=== PATIENT | female | born 1970 | race Caucasian/White ===

== ENCOUNTER → 2020-08-07 15:41 | Outpatient (CLI) | payer BC, SELFPAY ==
--- NOTE | ~2020-08-07 | MM_ITS ---
EXAMINATION: MM screening ritchie BI w vanessa HISTORY: Screening mammogram TECHNIQUE: Craniocaudal and mediolateral oblique 3-D tomosynthesis images were obtained and synthetic 2-D images were generated. CAD analysis was submitted and interpreted. COMPARISON: No prior mammogram is available for comparison at this institution. BREAST PARENCHYMAL COMPOSITION: There are scattered areas of fibroglandular density. FINDINGS: There is no evidence of suspicious mass, calcification, or architectural distortion to sugg est malignancy in either breast. There has been no suspicious interval change. IMPRESSION: 1. No mammographic evidence of malignancy. 2. Recommend routine screening mammography in one year. BI-RADS Category 1: Negative Reviewed, dictated and finalized at location A.
== END ==
PROVIDERS: Visit Provider Nurse Practitioner
DX: Z12.31 Encounter for screening mammogram for malignant neoplasm of breast (principal)
CPT/HCPCS: 77063; 77067

== ENCOUNTER → 2022-07-29 15:38 | Outpatient (CLI) | payer BC, SELFPAY ==
--- NOTE | ~2022-07-29 | MR_ITS ---
EXAMINATION: MR cervical spine wo con DATE: 07/29/2022 16:19 INDICATION: Neck pain. TECHNIQUE: Magnetic resonance imaging (MRI) of the cervical spine was performed without intravenous c ontrast. COMPARISON: None FINDINGS: There is hypolordosis of cervical spine. Vertebral body heights are normal. There is mildly decreased disc height at C4-C5, C5-C6, and C6-C7. The spinal cord signal intensity is normal. The fo llowing disc levels are specifically discussed: C2-C3: The disc does not extend beyond the endplate margin. There is no uncovertebral joint osteoarth ritis. There is mild bilateral facet joint osteoarthritis. There is no neural foraminal stenosis. The re is no central canal stenosis. C3-C4: The disc does not extend beyond the endplate margin. There is mild right uncovertebral joint o steoarthritis. There is no facet joint osteoarthritis. There is no neural foraminal stenosis. There i s no central canal stenosis. C4-C5: The disc does not extend beyond the endplate margin. There is moderate bilateral uncovertebral joint osteoarthritis. There is mild bilateral facet joint osteoarthritis. There is mild bilateral ne ural foraminal stenosis. There is no central canal stenosis. C5-C6: The disc does not extend beyond the endplate margin. There is mild right and moderate left unc overtebral joint osteoarthritis. There is no facet joint osteoarthritis. There is mild left neural fo raminal stenosis. There is no central canal stenosis. C6-C7: There is a central extrusion. There is no uncovertebral joint osteoarthritis. There is no face t joint osteoarthritis. There is no neural foraminal stenosis. There is mild central canal stenosis. C7-T1: The disc does not extend beyond the endplate margin. There is no uncovertebral joint osteoarth ritis. There is mild right and severe left facet joint osteoarthritis. There is mild left neural fora michael stenosis. There is no central canal stenosis. IMPRESSION: 1. Mild cervical spondylosis. Reviewed, dictated and finalized at location A.
== END ==
PROVIDERS: PCP Physical Medicine & Rehabilitation; Visit Provider Physical Medicine & Rehabilitation
DX: M47.892 Other spondylosis, cervical region (principal)
CPT/HCPCS: 72141

== ENCOUNTER → 2022-09-12 14:54 | Outpatient (CLI) | payer BC, SELFPAY ==
--- NOTE | ~2022-09-12 | MM_ITS ---
EXAMINATION: MM screening ritchie BI w vanessa HISTORY: Screening mammogram TECHNIQUE: Craniocaudal and mediolateral oblique 3-D tomosynthesis images were obtained and synthetic 2-D images were generated. CAD analysis was submitted and interpreted. COMPARISON: 08/07/2020 BREAST PARENCHYMAL COMPOSITION: The breasts are almost entirely fatty. FINDINGS: No suspicious mass, calcification, or architectural distortion are identified in either rahul ast to suggest malignancy. There has been no suspicious interval change. IMPRESSION: 1. No mammographic evidence of malignancy. 2. Recommend routine screening mammography in one year. BI-RADS Category 1: Negative Reviewed, dictated and finalized at location A.
== END ==
PROVIDERS: PCP Nurse Practitioner; Visit Provider Nurse Practitioner
DX: Z12.31 Encounter for screening mammogram for malignant neoplasm of breast (principal)
CPT/HCPCS: 77063; 77067

== ENCOUNTER 2024-01-24 15:12 | Outpatient (CLI) | payer BC, SELFPAY ==
--- NOTE | ~2024-01-24 | CT_ITS ---
EXAMINATION: CT abdomen pelvis wo con DATE: 01/24/2024 15:32 INDICATION: Kidney stone TECHNIQUE: Computed tomography (CT) of the abdomen and pelvis was performed without intravenous contr ast. Automated exposure control and iterative reconstruction technique were employed. The dose-length product was 192.72 mGy-cm. COMPARISON: None FINDINGS: Lung bases are clear. Heart size is normal. No pericardial effusion. No pleural effusion. 1 cm low-at tenuation hepatic cyst. Gallbladder, spleen, pancreas, left kidney and bilateral adrenal glands are n ormal. There are couple nonobstructing right renal cysts measuring 2 mm and 4 mm, both in the upper p ole. There is a 3-4 mm stone in the distal left ureter approximately 3 cm proximal to the ureterovesi cular junction. There are a few additional smaller phleboliths in the deep pelvis. There are few scat tered colonic diverticula along the descending and sigmoid colon without adjacent comparison to sugge st diverticulitis. Small bowel and appendix are normal. Bladder is normal. Uterus and bilateral adnex a are unremarkable. No free intraperitoneal gas or fluid. No pathologically enlarged abdominal or pel chiquita lymphadenopathy. Mild lumbar spondylosis with severe facet osteoarthritis bilaterally at L4-L5. IMPRESSION: 1. 3-4 mm distal left ureteral stone without hydronephrosis and a couple additional nonobstructing st ones at the upper pole of the right kidney. Reviewed, dictated and finalized at location A. IMPRESSION: 1. 3-4 mm distal left ureteral stone without hydronephrosis and a couple additi onal nonobstructing stones at the upper pole of the right kidney.
== END 2024-01-24 15:13 | disposition home or self-care (01) ==
LOC: ANHIMG 15:19
PROVIDERS: Visit Provider Urology
DX: N20.0 Calculus of kidney (principal)
CPT/HCPCS: 74176

== ENCOUNTER 2024-02-01 04:56 | Day surgery (SDC) | payer BC, SELFPAY ==
[2024-01-25 13:29] VITALS: BMI 26.4
--- NOTE | 2024-01-25 13:30 | PC.NURSE ---
Report to the Outpatient Waiting Room, entrance under the green pavilion located off [facility], at time _1230_ on date _[id number]_. Planned Procedure Time: _230pm_.? Time changes happen often and if your time is changed the preop area will call you the afternoon before. - You and your visitor will be asked to self-screen and do not enter if you have any COVID symptoms. Please call surgeon if you need to reschedule. - A mask is optional within the hospital at this time. Patients may have clear liquids (water, carbonated beverages, clear teas, apple juice) until 3 hours prior to surgery with a maximum of 20 ounces. - No food from midnight until time of surgery and no smoking Take only the following medications with a SIP of water on the morning of surgery: ___None DO NOT STOP ANY OF YOUR OTHER PRESCRIPTION MEDICATIONS PRIOR TO SURGERY EXCEPT THE FOLLOWING Medications to discontinue per physician __Multivitamin Date to take last irgc___[id number] Bm Zepbound this week (Monday) until after surgery. Please no make-up, nail latvian, hairspray, perfume, deodorant, or body powder the day of surgery.? No jewelry (including any body piercings) or valuables the day of surgery, leave them at home.? Please take a shower or bath the night before, or the morning of, surgery with an antibacterial soap.? Wear comfortable, loose fitting clothing.? - Jewelry must be removed prior to entering the operating room.? Rings and piercings that are not removed may be cut off. - The hospital will not accept responsibility for valuables.? - Please leave all valuables, including medications, at home the day of surgery. If you are going home after surgery, a licensed class b driver must drive you home.? - NO public transportation without another adult if you receive anesthesia. - We recommend that an adult stay with you for 24 hours following discharge. - We also recommend that you do not drive, make important decision, drink alcoholic beverages, or take any drugs that were not prescribed by your health care provider for at least 24 hours after your discharge time. Follow any additional instructions given to you from your surgeon. Telephone instructions given to __Ewelina___and asked if any additional questions and then verbalized understanding. Patient advised to call surgeon office or pre surgery nurse liaison [phone] if any additional questions.
--- NOTE | ~2024-02-01 | XR_ITS ---
EXAMINATION: XR fluoroscopy no charge DATE: 02/01/2024 14:33 INDICATION: Left ureteral stone. TECHNIQUE: 3 intraoperative fluoroscopic views of the abdomen and pelvis were obtained. I was not pre sent. Fluoroscopy exposure time was 55 seconds. COMPARISON: CT abdomen and pelvis 01/24/2024 FINDINGS: There is a stone in the distal left ureter. There is a catheter in the left ureter. IMPRESSION: 1. Stone in the distal left ureter status post extraction. Reviewed, dictated and finalized at location A.
--- NOTE | 2024-02-01 06:41 | WPDHPUPDATE1 ---
History and Physical Update Update Date/Time: 02/01/24 06:41 History and Physical has been reviewed, including an updated exam of the patient. There are NO changes in the patient's condition. Risks, benefits, and alternatives have been discussed and questions answered. Patient agrees to proceed with procedure.
[2024-02-01 12:41] VITALS: BP 122/67; PULSE 81; RESP 16; TEMP 36.5; O2SAT 100
--- NOTE | 2024-02-01 12:46 | P.PNAN_ITS ---
Anes - Initial Pre Proc Eval Procedure: Operation Date: 02/01/24 14:30 Proposed Procedures p Cystoscopy Left Ureteroscopy, Left Stone Extraction, Possible Holmium Laser, Possible Left Retrograde Pyelogram, Possible Stent Placement - Roberth Schwab MD Date/Time: 02/01/24 12:46 Surgeon: Roberth Schwab MD Pre Op Diagnosis: Lt Ureteral Stone Patient Data Age: 53 Gender: F Height: 1.52 m Weight: 65.3 kg Last Vital Signs Temp 97.7 F 02/01/24 12:41 Pulse 81 02/01/24 12:41 Resp 16 02/01/24 12:41 BP 122/67 02/01/24 12:41 Pulse Ox 100 02/01/24 12:41 O2 Del Method Room Air 02/01/24 12:41 Allergies Allergy/AdvReac Type Severity Reaction Status Date / Time Sulfa (Sulfonamide Allergy Mild Rash Verified 02/01/24 12:38 Antibiotics) Home Medications Medication Instructions Recorded Confirmed Type multivitamin 1 tablet PO DAILY 01/25/24 02/01/24 History spironolactone 100 mg tablet 100 mg PO DAILY 01/25/24 02/01/24 History tirzepatide (weight loss) 7.5 7.5 mg subcut WEEKLY 01/25/24 02/01/24 History mg/0.5 mL subcutaneous pen injector (Zepbound) Patient hx anesthesia problems: none Family hx anesthesia problems: none Results Review: All pre-operative results and documents have been reviewed as part of the pre- operative evaluation. [facility] Social History Social History Smoking status: Never smoker Alcohol intake: current Living arrangements: with family Spiritual care concerns: No Anes - Eval Final PreProcedure Day of Procedure 02/01/24 12:46 Patient weight: overweight Heart: regular rate and rhythm Lungs: clear to auscultation Airway: Mallampati scale class II Neurological: alert and oriented Last oral intake: >/= 8 hours ASA classification: II Emergent: no Anesthetic plan: proceed Anesthesia type and monitoring: general LMA and standard monitoring Results Review: All pre-operative results and documents have been reviewed as part of the pre- operative evaluation. Hx of RUSTY on CPAP, pt stopped using it after her 60 pound wt loss. Active w her job at a [employer], no cp or sob. Informed Consent: The patient's anesthetic plan and its attendant risks and benefits were discussed with the patient/family/POA. Questions were solicited and answers provided to the satisfaction of the patient/family/POA.
[2024-02-01] MEDS: LACTATED RINGERS 1,000 ML 30 ML IV CONT ×2 (12:50→14:33)
[2024-02-01] MEDS: ceFAZolin 2 GM/D5W 50 ML 2 GM/50 ML BAG IVPB (14:04)
[2024-02-01] MEDS: KETOROLAC 30 MG/ML VIAL (*BKC) IV PUSH (14:26)
--- NOTE | 2024-02-01 14:31 | W.PM.PROC2 ---
Procedure Note - Detailed Date of Procedure 02/01/24 Pre-op Diagnosis Lt Ureteral Stone Post-op Diagnosis Same Procedure Performed Cysto., left ureteroscopy with stone extraction Surgeon Roberth Schwab MD Anesthesia General Description of Procedure The patient was brought to the operative suite where she is prepped and draped in a routine sterile fashion while in the dorsal lithotomy position after the uneventful induction of a general LMA anesthetic. A 19F rigid cystoscope was placed in the bladder. The patient had no evidence of urethral stricture or bladder neck contracture. The bladder mucosa was endoscopically normal without hyperemia or neoplasm. There was a single, orthotopic ureteral orifice bilaterally. A 0.035 glidewire was advanced into the left renal pelvis under fluoroscopy. The distal ureter was dilated with an 8F/10F ureteral dilator. Ureteroscopy was undertaken with a short, tapered, semi-rigid ureteroscope and the stone was extracted with ease using a 1.9F Escape disposable stone basket. Due to the ease of this manipulation I opted not to place a ureteral stent. The patient's bladder was emptied and was taken to the recovery room having tolerated this procedure well. Drains No Complications No immediate complications
[2024-02-01 14:33] VITALS: BP 104/58; PULSE 102; RESP 16; TEMP 36.3; O2SAT 100
[2024-02-01 14:45] VITALS: BP 104/67; PULSE 85; RESP 20; O2SAT 100
[2024-02-01 15:00] VITALS: BP 110/73; PULSE 66; RESP 16; O2SAT 100
[2024-02-01 15:20] VITALS: BP 124/57; PULSE 62
[2024-02-01 15:50] VITALS: BP 137/82; PULSE 57
== END 2024-02-01 15:58 | disposition home or self-care (01) ==
PROVIDERS: Visit Provider Urology
PROC: (CPT 52352; principal; 2024-02-01 14:30)
DX: N20.1 Calculus of ureter (principal); Z79.85 Long-term (current) use of injectable non-insulin antidiabetic drugs; Z80.0 Family history of malignant neoplasm of digestive organs; Z80.3 Family history of malignant neoplasm of breast; Z82.49 Family history of ischemic heart disease and other diseases of the circulatory system
CPT/HCPCS: 52352; 82365; 88300; 99199; C1769; J0690; J1100; J1885; J2003; J2250; J2405; J2704; J3010; J7120

== ENCOUNTER 2024-04-10 11:57 | Outpatient (CLI) | payer BC, SELFPAY ==
--- NOTE | ~2024-04-10 | XR_ITS ---
XR abdomen/kub 1V 04/10/2024 12:21 INDICATION: Renal stones TECHNIQUE: KUB COMPARISON: CT dated 01/24/2024 FINDINGS: Bowel gas pattern is normal. Moderate colonic fecal loading. There is no evidence of free a ir, mass, organomegaly, ascites or obstruction. There are faint right renal stones obscured by bowel content.. There are left pelvic phleboliths. The bones appear intact. IMPRESSION: 1: Right nephrolithiasis. Reviewed, dictated and finalized at location B. [employer] IMPRESSION: 1: Right nephrolithiasis.
== END 2024-04-10 11:58 | disposition home or self-care (01) ==
LOC: MICIMG 11:58
PROVIDERS: PCP Urology; Visit Provider Urology
DX: N20.0 Calculus of kidney (principal)
CPT/HCPCS: 74018

== ENCOUNTER 2024-04-15 12:48 | Outpatient (CLI) | payer BC, SELFPAY ==
[2024-04-15 13:59] LABS: INR 0.9; Prothrombin Time 12.9 Seconds (11.1-14.7)
[2024-04-15 14:00] LABS: Partial Thromboplastin Time 26.6 Seconds (22.3-36.8)
== END 2024-04-15 12:49 | disposition home or self-care (01) ==
LOC: ANHSURGERY 12:54
PROVIDERS: Visit Provider Urology
DX: Z01.812 Encounter for preprocedural laboratory examination (principal); N20.0 Calculus of kidney
CPT/HCPCS: 36415; 85610; 85730; 87086

== ENCOUNTER 2024-04-22 18:34 | Emergency (ER) | payer BC, SELFPAY ==
[2024-04-22 19:20] VITALS: BP 122/82; PULSE 84; RESP 16; TEMP 36.4; O2SAT 100
[2024-04-22 22:47] VITALS: BP 130/75; PULSE 79; RESP 18; TEMP 36.3; O2SAT 100
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
[2024-04-22] MEDS: TETANUS,DIPHTHERIA,AC PERTUSSIS ADULT (0.5 ML) BOOSTRIX IM (23:38)
[2024-04-23] VITALS: BP 109/74; PULSE 78; RESP 14; O2SAT 100
== END 2024-04-23 00:12 | disposition home or self-care (01) ==
PROVIDERS: Emergency Provider Emergency Medicine
DX: T22.012A Burn of unspecified degree of left forearm, initial encounter (principal); X15.0XXA Contact with hot stove (kitchen), initial encounter; Z23 Encounter for immunization
CPT/HCPCS: 90471; 90715; 99282

== ENCOUNTER 2024-04-26 00:47 | Day surgery (SDC) | payer BC, SELFPAY ==
[2024-04-15 08:49] VITALS: BMI 25.4
--- NOTE | 2024-04-15 08:58 | PC.NURSE ---
Addendum entered by Ashley Wylie RN 04/15/24 09:15: Pt to hold MVI for 3 days prior, date to take last dose is 04/22/24 Original Note: Report to the Outpatient Waiting Room, entrance under the green pavilion located off [facility], at time __12:30pm on date _04/26/24 . Planned Procedure Time: 2:30pm .? Time changes happen often and if your time is changed the preop area will call you the afternoon before. - You and your visitor will be asked to self-screen and do not enter if you have any COVID symptoms. Please call surgeon if you need to reschedule. - A mask is optional within the hospital at this time. Patients may have clear liquids (water, carbonated beverages, clear teas, apple juice) until 3 hours prior to surgery with a maximum of 20 ounces. - No food from midnight until time of surgery and no smoking. This includes no chewing gum, candy or mints. ( 11:30am) Take only the following medications with a SIP of water on the morning of surgery: Tylenol as needed DO NOT STOP ANY OF YOUR OTHER PRESCRIPTION MEDICATIONS PRIOR TO SURGERY EXCEPT THE FOLLOWING Medications to discontinue per physician Hold Tirzepitide for [address] Schwab Date to take last dose 04/14/24 Please no make-up, nail sri lankan, hairspray, perfume, deodorant, or body powder the day of surgery.? No jewelry (including any body piercings) or valuables the day of surgery, leave them at home.? Please take a shower or bath the night before, or the morning of, surgery with an antibacterial soap.? Wear comfortable, loose fitting clothing.? - Jewelry must be removed prior to entering the operating room.? Rings and piercings that are not removed may be cut off. - The hospital will not accept responsibility for valuables.? - Please leave all valuables, including medications, at home the day of surgery. If you are going home after surgery, a licensed motor coach bus driver must drive you home.? - NO public transportation without another adult if you receive anesthesia. - We recommend that an adult stay with you for 24 hours following discharge. - We also recommend that you do not drive, make important decision, drink alcoholic beverages, or take any drugs that were not prescribed by your health care provider for at least 24 hours after your discharge time. Follow any additional instructions given to you from your surgeon. Telephone instructions given to ____patient and asked if any additional questions and then verbalized understanding. Patient advised to call surgeon office or pre surgery nurse liaison [phone] if any additional questions.
[2024-04-26] VITALS (8 sets, daily range): BP systolic 110–132; BP diastolic 62–77; PULSE 66–78; RESP 14–21; TEMP 36.2–36.3; O2SAT 100
--- NOTE | ~2024-04-26 | XR_ITS ---
EXAMINATION: XR abdomen/kub 1V DATE: 04/26/2024 10:13 INDICATION: Right kidney stone. TECHNIQUE: A supine view of the abdomen on 2 radiographs was obtained. COMPARISON: CT abdomen and pelvis 01/24/2024 FINDINGS: There are no dilated loops of bowel. There is a small volume of stool in the colon. There a re phleboliths in left pelvis. IMPRESSION: 1. No visible urolithiasis. Reviewed, dictated and finalized at location A. GER ED IMPRESSION: 1. No visible urolithiasis.
--- NOTE | 2024-04-26 06:24 | WPDHPUPDATE1 ---
History and Physical Update Update Date/Time: 04/26/24 06:24 History and Physical has been reviewed, including an updated exam of the patient. There are NO changes in the patient's condition. Risks, benefits, and alternatives have been discussed and questions answered. Patient agrees to proceed with procedure.
[2024-04-26] MEDS: LACTATED RINGERS 1,000 ML 30 ML IV CONT (12:00)
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
[2024-04-26] MEDS: ceFAZolin 2 GM/D5W 50 ML 2 GM/50 ML BAG IVPB (12:33)
--- NOTE | 2024-04-26 12:56 | W.PM.PROC2 ---
Procedure Note - Detailed Date of Procedure 04/26/24 Pre-op Diagnosis Right kidney stones Post-op Diagnosis Same Procedure Performed Right ESWL Surgeon Roberth Schwab MD Anesthesia General Description of Procedure The patient was brought to the operative suite where she was placed in the supine position on the Dornier lithotripsy table. The focal point of the lithotripter was placed at a 5-6mm right upper pole calculus where we delivered 1800 shocks at power of 4. The small stone was treated with 700 shocks at the same power setting. A total of 2500 shocks were delivered at a power setting of 4. There appeared to be good fragmentation of the stone. The patient tolerated the procedure well and was taken to the recovery room in good condition. Drains No Packing No Pathology None sent Complications No immediate complications Condition Stable Disposition PACU
[2024-04-26] MEDS: fentaNYL CITRATE INJ (*CRX) 100 MCG/2 ML VIAL 25 MCG IV PUSH ×4 (13:44→13:54)
[2024-04-26] MEDS: oxyCODONE HCL (*CRX) 5 MG TAB IR PO (14:17)
--- OUTSIDE RECORDS SUMMARY | 2024-05-03 02:17 | XMS_ITS | Encounter Summary ---
Author Organization [facility] Address [address] [place] [address] Care Team Providers Care Motion Picture Equipment Supervisor Name Role Phone Unavailable Primary Care Provider Unavailabl e Encounter Details Date Type Department Care Team (Late st Contact Info) Description 12/27/2023 External Device Data STL ABSTRACTION Provider, Abstract NO ADDRESS ON FILE Social History Tobacco Use Types Packs/Day Years Used Date Smoking Tobacco: Never Assessed Sex and Gender Information Value Date Recorded Sex Assigned at Not on file Gender Identity Not on file Sexual Orientation Not on file documented as of this encounter Plan of Treatment Not on file documented as of this encounter Visit Diagnoses Not on filedocumented in this encounter
--- OUTSIDE RECORDS SUMMARY | 2024-05-03 02:17 | XMS_ITS | Encounter Summary ---
Author Organization [facility] Address [address] [place] [address] Care Team Providers Care Music Publisher Name Role Phone Unavailable Primary Care Provider Unavailabl e Encounter Details Date Type Department Care Team (Late st Contact Info) Description 03/19/2021 3:15 PM DRILLER'S OFFSIDER Immunization [facility] Immunization [employer] [place] [address] Need for vaccination (Primary Dx) Social History Tobacco Use Types Packs/Day Years Used Date Smoking Tobacco: Never Assessed Comments Unknown Sex and Gender Information Value Date Recorded Sex Assigned at Not on file Legal Sex Female 3:10 PM DRILLER'S OFFSIDER Gender Identity Not on file Sexual Orientation Not on file documented as of this encounter Plan of Treatment Not on file documented as of this encounter Visit Diagnoses Diagnosis Need for vaccination- Primary Need for prophylactic vaccination and inoculation against unspecified single disease documented in this encounter
--- OUTSIDE RECORDS SUMMARY | 2024-05-03 02:17 | XMS_ITS | Clinical Summary ---
Author Organization [facility] Address [address] [address] Care Team Providers Care Skiver Welt End Name Role Phone Unavailable Primary Care Provider Unavailabl e Allergies Active Allergy Reactions Criticality Noted Date Comments Sulfa (Sulfonamide Antibiotics) Rash High 11/30 Medications Medication Sig Dispensed Refills Start Date End Date Status tirzepatide (Mounjaro) 2.5 mg/0.5 mL Pen Injector Inject 2.5 mg by subcutaneous injection every 7 days. 2 mL 2 01/18/2023 Active tirzepatide (Mounjaro) 5 mg/0.5 mL Pen Injector Inject 5 mg by subcutaneous injection every 7 days. 2 mL 2 02/17/2023 Active benzonatate (TESSALON) 200 mg capsule Take 1 Capsule (200 mg) by mouth 3 times daily as needed for cough. 30 Capsule 04/17/2023 Active Social History Tobacco Use Types Packs/Day Years Used Date Smoking Tobacco: Never Assessed Sex and Gender Information Value Date Recorded Sex Assigned at Not on file Gender Identity Not on file Sexual Orientation Not on file Plan of Treatment Health Maintenance Due Date Last Done Comments DTAP/TDAP/TD VACCINES (1 - Tdap) 1991 HEPATITIS B VACCINES (1 of 3 - 19+ 3-dose series) 1991 CERVICAL CANCER SCREENING 2002 BREAST CANCER SCREENING 2012 COLORECTAL SCREENING 2017 Colorectal Cancer Screening 2017 FIT-DNA Q 3 years 2017 FIT/FOBT Q 1 year 2017 Flex Sig/CT Colonography Q 5 years 2017 ZOSTER VACCINE (1 of 2) 2022 INFLUENZA VACCINE (#1) 2023 PNEUMOCOCCAL VACCINE 0-64 YEARS Aged Out No longer eligible based on patient's age to complete this topic
--- OUTSIDE RECORDS SUMMARY | 2024-05-03 02:17 | XMS_ITS | Encounter Summary ---
Author Organization [facility] Address [address] [place] [address] Care Team Providers Care Operations Lead Name Role Phone Unavailable Primary Care Provider Unavailabl e Encounter Details Date Type Department Care Team (Late st Contact Info) Description 10/31/2023 External Device Data STL ABSTRACTION Provider, Abstract [...]
--- OUTSIDE RECORDS SUMMARY | 2024-05-03 02:17 | XMS_ITS | Encounter Summary ---
Author Organization [facility] Address [address] [place] [address] Care Team Providers Care Accounts Adjustable Clerk Name Role Phone Unavailable Primary Care Provider Unavailabl e Encounter Details Date Type Department Care Team (Late st Contact Info) Description 01/23/2024 External Device Data STL ABSTRACTION Provider, Abstract [...]
--- OUTSIDE RECORDS SUMMARY | 2024-05-03 02:17 | XMS_ITS | Encounter Summary ---
Author Organization [facility] Address [address] [place] [address] Care Team Providers Care Paint Tinter Name Role Phone Unavailable Primary Care Provider Unavailabl e Encounter Details Date Type Department Care Team (Late st Contact Info) Description 2023 External Device Data STL ABSTRACTION Provider, Abstract [...]
--- OUTSIDE RECORDS SUMMARY | 2024-05-03 02:17 | XMS_ITS | Encounter Summary ---
Author Organization [facility] Address [address] [place] [address] Care Team Providers Care Sales Enablement Manager Name Role Phone Unavailable Primary Care Provider Unavailabl e Encounter Details Date Type Department Care Team (Late st Contact Info) Description 12/26/2023 External Device Data STL ABSTRACTION Provider, Abstract [...]
--- OUTSIDE RECORDS SUMMARY | 2024-05-03 02:17 | XMS_ITS | Encounter Summary ---
Author Organization [facility] Address [address] [place] [address] Care Team Providers Care Honest John Rocket Crew Member Name Role Phone Unavailable Primary Care Provider Unavailabl e Encounter Details Date Type Department Care Team (Late st Contact Info) Description 06/16/2023 External Device Data STL ABSTRACTION Provider, Abstract [...]
--- OUTSIDE RECORDS SUMMARY | 2024-05-03 02:17 | XMS_ITS | Clinical Summary ---
Author Organization [facility] Address [address] [place] [address] Care Team Providers Care Bell Cleaner Name Role Phone Unavailable Primary Care Provider Unavailabl e Immunizations Immunization Administration Dates Next Due Covid-19, Mrna, Lnp-s, PF, 5 0 mcg/0.25 mL dose (Moderna) 03/19/2021 Social History Tobacco Use Types Packs/Day Years Used Date Smoking Tobacco: Never Assessed Comments Unknown Sex and Gender Information Value Date Recorded Sex Assigned at Not on file Legal Sex Female 3:10 PM REAL ESTATE LEASING MANAGER Gender Identity Not on file Sexual Orientation Not on file Plan of Treatment Health Maintenance Due Date Last Done Comments Hepatitis C Virus (HCV) Screening 1972 TdaP Immunization 1972 Hepatitis B Immunization (1 of 3 - 19+ 3-dose series) 1991 Pap Smear 1993 Cervical Cancer Screening (CCS) 2002 HPV/Cotest 2002 Colonoscopy 2017 Colorectal Cancer Screening 2017 Cologuard 2022 Immunochemical Fecal Occult Blood 2022 Mammogram 2022 Zoster Immunization (1 of 2) 2022 SARS-COV-2 Immunization ( season) 2022 03/19/2021, 07/07/2020, 06/09/2020 Influenza Immunization (Seas on Ended) 2023 Meningococcal Immunization (ACWY) Aged Out No longer eligible b ased on patient's age to complete this topic Pneumococcal Immunization Combined Aged Out No longer eligible b ased on patient's age to complete this topic Rotavirus Immunization Aged Out No lo nger eligible based on patient's age to complete this topic
--- OUTSIDE RECORDS SUMMARY | 2024-05-03 02:17 | XMS_ITS | Encounter Summary ---
Author Organization [facility] Address [address] [place] [address] Care Team Providers Care Solar Project Engineer Name Role Phone Unavailable Primary Care Provider Unavailabl e Encounter Details Date Type Department Care Team (Late st Contact Info) Description 06/22/2023 External Device Data STL ABSTRACTION Provider, Abstract [...]
--- OUTSIDE RECORDS SUMMARY | 2024-05-03 02:17 | XMS_ITS | Encounter Summary ---
Author Organization [facility] Address [address] [place] [address] Care Team Providers Care Insole Tacker Name Role Phone Unavailable Primary Care Provider Unavailabl e Encounter Details Date Type Department Care Team (Late st Contact Info) Description 05/09/2023 External Device Data STL ABSTRACTION Provider, Abstract [...]
--- OUTSIDE RECORDS SUMMARY | 2024-05-03 02:18 | XMS_ITS | Encounter Summary ---
Author Organization [facility] Address [address] [address] Care Team Providers Care Compactor Driver Name Role Phone No, Physician Primary Care Provider [phone] Reason for Visit * Reason Comments Cough Started Yesterday Nasal Congestion Encounter Details Date Type Department Care Team (Late st Contact Info) Description 03/16/2022 10:00 AM BLOWING ENGINEER Office Visit [facility] [address] [id number] Ailyn Olivares PA [address] [place] [address] [address] [place], [place] [id number] COVID-19 (Primary Dx) Social History Tobacco Use Types Packs/Day Years Used Date Smoking Tobacco: Never Smokeless Tobacco: Never Tobacco Cessation:Counseling Given: Not Answered Comments Unknown Sex and Gender Information Value Date Recorded Sex Assigned at Not on file Legal Sex Female 9:17 AM BLOWING ENGINEER Gender Identity Not on file Sexual Orientation Not on file documented as of this encounter Last Filed Vital Signs Vital Sign Reading Time Taken Comments Blood Pressure 115/69 03/16/2022 10:08 AM BLOWING ENGINEER Pulse 107 03/16/2022 10:08 AM BLOWING ENGINEER Temperature 37.6 ??C (99.6 ??F) 03/16/2022 10:[address] Respiratory Rate - - Oxygen Saturation 97% 03/16/2022 10:08 AM BLOWING ENGINEER Inhaled Oxygen Concentration - - Weight 87.6 kg (193 lb 3.2 oz) 03/16/2022 10:08 AM BLOWING ENGINEER Height 152.4 cm (5') 03/16/2022 10:08 AM BLOWING ENGINEER Body Mass Index 37.73 03/16/2022 10:08 AM BLOWING ENGINEER documented in this encounter Patient Instructions * Patient Instructions* Ailyn Olivares PA - 03/16/2022 10:00 AM BLOWING ENGINEER While waiting for your COVID-19 test result or if your COVID-19 test is positive: ISOLATE: Stay home except to get medical care! Separate yourself from other people and pets in yourhome: Do not go to work, school, or public areas, such as stores or social gatherings. Do not use public transportation. If available, stay in a separate bedroom and use a separate bathroom. Ask others to care for your pets. (If possible) Wear a facemask when around other people or pets. Cover your mouth and nose with a tissue when you cough or sneeze. If a tissue is not available, cough or sneeze into your upper sleeve (not your hands). Throw tissues away in trash-can that has a bag in it. Empty your trash daily. Always wash your hands after you throw away the tissue or garbage. QUARANTINE CAN BE COMPLETE ONCE THERE HAS BEEN MINIMUM OF 5 DAYS SINCE SYMPTOM ONSET, FEVER FREE X 24 HOURS AND HAVING SYMPTOM IMPROVEMENT. Self-care: Rest as much as possible. Slowly start to do more each day. Take the medicines recommended by your doctor for fever, body aches, cough, or headaches. (Tylenol or Ibuprofen for aches/pains/fever as needed) (Antihistamines like Claritin or Benadryl as needed for drainage) (Delsym and cough drops/throat lozenges as needed for cough) Drink more liquids as directed to help thin and loosen mucus so it is easier to cough up. Liquids such as water, fruit juice, and broth also help keep you hydrated. Soothe a sore throat by gargling with warm salt water. Make salt water by dissolving ?? teaspoon salt in 1 cup warm water (8 ounces). Older children and adults can also use throat lozenges, ice chips, or sore throat spray. Use a humidifier or vaporizer to increase air moisture in your home. This may make it easier to breathe and help decrease coughing. Use saline nasal drops as directed to relieve congestion. Apply petroleum-based jelly around the outside of nostrils to decrease irritation from blowing yournose. DO NOT smoke or vape. Nicotine and other chemicals in cigarettes and cigars can make your symptoms worse. Monitor your symptoms: Seek medical attention right away if your symptoms get worse, such as if you are having difficulty breathing, shortness of breath, new confusion or inability to arouse, or bluish lips or face. If indicated a pulse ox will be soon delivered to your home - monitor your oxygen saturations with this device. If you find your Oxygen Saturation is falling 92% or below please notify your PCP rightaway or seek medical attention. If you have a medical emergency, call 911 and notify the EMS personnel that you have or are being evaluated for COVID-19. Put on a facemask before emergency medical services arrive ING ENGINEER * Attachments The following attachments cannot be sent through Care Everywhere. * Viral Syndrome (Discharge Care) (Swazi) documented in this encounter Ordered Prescriptions Prescription Sig Dispense Quantity Refills Last Filled Start Date End Date predniSONE (DELTASONE) 20 mg tablet Take 1 tablet (20 mg) by mouth daily 5 tablet 03/16/2022 3 benzonatate (TESSALON) 100 mg capsuleIndications :Cough Take 1 capsule (100 mg total) by mouth 3 (three) times a day as needed for cough 21 capsule 03/16/2022 2 documented in this encounter Progress Notes * Ailyn Olivares PA - 03/16/2022 10:00 AM CST Images from the original note were not included. Subjective/Objective Patient ID: Ewelina Vargas is a 51 y.o. female. Chief Complaint Cough (Started Yesterday ) and Nasal Congestion Pt presents w/ cold symptoms x 2 days. She is having cough, nasal congestion, rhinorrhea, fatigue. No cp/sob. Low grade fever today but denies chills or body aches. No N/V/D/abd pain. Vaccinated and boosted for covid. Did 2 home covid tests which were negative yesterday. Took OTC cough syrup this morning w/ mild relief. Cough Review of Systems Respiratory: Positive for cough. All systems reviewed and are negative or non contributory for this patient's presentation today other than as stated in the HPI . Physical Exam Constitutional: General: She is not in acute distress. Appearance: She is not ill-appearing or toxic-appearing. HENT: Head: Normocephalic and atraumatic. Right Ear: External ear normal. Left Ear: External ear normal. Nose: Nose normal. Mouth/Throat: Mouth: Mucous membranes are moist. Pharynx: Oropharynx is clear. Eyes: Conjunctiva/sclera: Conjunctivae normal. Pupils: Pupils are equal, round, and reactive to light. Cardiovascular: Rate and Rhythm: Normal rate and regular rhythm. Heart sounds: Normal heart sounds. Pulmonary: Effort: Pulmonary effort is normal. Breath sounds: Normal breath sounds. Musculoskeletal: General: Normal range of motion. Cervical back: Normal range of motion. Skin: General: Skin is warm and dry. Neurological: General: No focal deficit present. Mental Status: She is alert and oriented to person, place, and time. Psychiatric: Mood and Affect: Mood normal. Behavior: Behavior normal. Vitals: 03/16/22 1008 BP: 115/69 BP Location: Left arm Patient Position: Sitting Pulse: 107 Temp: 37.6 ??C (99.6 ??F) TempSrc: Oral SpO2: 97% Weight: 87.6 kg (193 lb 3.2 oz) Height: 152.4 cm (5') Assessment/Plan -positive for covid -sent prednisone and tessalon pearls to pharmacy -discussed isolation precautions -vitals stable, pt well appearing, oxygen 97% on RA. Diagnoses and all orders for this visit: COVID-19 (Primary) - POC Influenza A/B, COVID-19 antigen Other orders - benzonatate (TESSALON) 100 mg capsule; Take 1 capsule (100 mg total) by mouth 3 (three) times a day as needed for cough - predniSONE (DELTASONE) 20 mg tablet; Take 1 tablet (20 mg) by mouth daily Recent Results (from the past 4 hour(s)) POC Influenza A/B, COVID-19 antigen Collection Time: 03/16/22 10:23 AM Result Value Ref Range Inflenza A Ag, POC Negative Negative Influenza B Ag, POC Negative Negative COVID-19 Ag POC Positive (A) Presumptive Negative, Invalid Disposition Treatment plan including expectations, follow up, and return precautions discussed with patient/parent, verbalizes understanding. Medication dosage, use, and potential adverse reactions discussed with patient/parent. Advised to follow up with PCP if symptoms do not resolve as expected or sooner if condition worsens. Signs/symptoms warranting ER evaluation reviewed. Patient and/or guardian was given an opportunity to ask questions, questions answered. RABIA Ware 03/16/22 10:44 AM ING ENGINEER documented in this encounter Plan of Treatment Not on file documented as of this encounter Procedures Procedure Name Priority Date/Time Associated Diagnosis Comments POC INFLUENZA A/B, COVID-19 ANTIGEN Routine 03/16/2022 10:23 AM BLOWING ENGINEER COVID-19 documented in this encounter Results * (ABNORMAL) POC Influenza A/B, COVID-19 antigen (03/16/2022 10:23 AM BLOWING ENGINEER) Influenza A Ag, POC Negative Negative [facility] Influenza B Ag, POC Negative Negative [facility] COVID-19 Ag POC Positive(A) Presumptive Negative, Invalid [facility] Nasal 03/16/2022 10:2 3 AM BLOWING ENGINEER Deann Manzanares NP POINT OF CARE TEST ORDERABLES Final Result [facility] [address] [place] [address] documented in this encounter Visit Diagnoses Diagnosis COVID-19- Primary documented in this encounter Historical Medications * This list may reflect changes made after this encounter. Medication Sig Dispense Quantity Refills Last Filled Start D ate End Date spironolactone (ALDACTONE) 50 mg tablet 02/18/2022 added in this encounter Additional Health Concerns Infection Onset Date Last Indicated Resolved Time COVID: Suspected 03/16/2022 03/16/2022 03/16/2022 10:23 AM BLOWING ENGINEER COVID19 03/16/2022 03/16/2022 03/26/2022 3:07 AM BLOWING ENGINEER documented as of this encounter Care Teams Compactor Driver Relationship Specialty Start Date End Date No, Physician PCP - General 03/16/22 documented as of this encounter
--- OUTSIDE RECORDS SUMMARY | 2024-05-03 02:18 | XMS_ITS | Encounter Summary ---
Author Organization [facility] Address [address] [address] Care Team Providers Care Meat Cutter Name Role Phone No, Physician Primary Care Provider [phone] Reason for Visit * Reason Comments URI Pt c/o cough that se ems to have gotten worse. She is 3 weeks post-covid Encounter Details Date Type Department Care Team (Late st Contact Info) Description 04/08/2022 8:30 AM DRUPAL PHP DEVELOPER Office Visit [facility] Out[facility] [address] [id number] Dereje Lugo, MATILDA [address] [place] [phone] Acute non-recurrent maxillary sinusitis (Primary Dx); Antibiotic-induced yeast infection Social History Tobacco Use Types Packs/Day Years Used Date Smoking Tobacco: Never Smokeless Tobacco: Never Tobacco Cessation:Counseling Given: Not Answered Comments Unknown Sex and Gender Information Value Date Recorded Sex Assigned at Not on file Legal Sex Female 9:17 AM DRUPAL PHP DEVELOPER Gender Identity Not on file Sexual Orientation Not on file documented as of this encounter Last Filed Vital Signs Vital Sign Reading Time Taken Comments Blood Pressure 110/74 04/08/2022 8:26 AM DRUPAL PHP DEVELOPER Pulse 82 04/08/2022 8:26 AM DRUPAL PHP DEVELOPER Temperature 37.1 ??C (98.7 ??F) 04/08/2022 8:26 AM CS T Respiratory Rate 18 04/08/2022 8:26 AM DRUPAL PHP DEVELOPER Oxygen Saturation 98% 04/08/2022 8:26 AM DRUPAL PHP DEVELOPER Inhaled Oxygen Concentration - - Weight 87.1 kg (192 lb) 04/08/2022 8:26 AM DRUPAL PHP DEVELOPER Height 152.4 cm (5') 04/08/2022 8:26 AM DRUPAL PHP DEVELOPER Body Mass Index 37.5 04/08/2022 8:26 AM DRUPAL PHP DEVELOPER documented in this encounter Patient Instructions * Attachments The following attachments cannot be sent through Care Everywhere. * Sinusitis (General Information) (Ecuadorean) documented in this encounter Ordered Prescriptions Prescription Sig Dispense Quantity Refills Last Filled Start Date End Date benzonatate (TESSALON) 200 mg capsule Take 1 capsule (200 mg total) by mouth 3 (three) times a day as needed for cough 42 capsule 04/08/2022 3 fluconazole (DIFLUCAN) 150 mg tablet Take 1 tablet (150 mg total) by mouth once for 1 dose 1 tablet 04/08/2022 2 amoxicillin-clavul anate (AUGMENTIN) 875-125 mg per tablet Take 1 tablet by mouth 2 (two) times a day for 10 days 20 tablet 04/08/2022 2 documented in this encounter Progress Notes * Dereje Lugo NP - 04/08/2022 8:30 AM CST Images from the original note were not included. Subjective/Objective Patient ID: Ewelina Vargas is a 51 y.o. female. Chief Complaint URI (Pt c/o cough that seems to have gotten worse. She is 3 weeks post-covid) Patient states that 3 weeks ago she was diagnosed with COVID. She states that overall her symptoms had improved and she thought she was feeling better. With that said she states she is continued to have nasal congestion, drainage, and cough. But all her other symptoms did improve. She has now had the nasal congestion, cough, and drainage for 3 weeks and her phlegm has gone from clear and runny too thick and colored. She does state that she is not short of breath and she did try her inhaler for the cough but it did not really help. She states the cough is keeping her up at night and it is annoying her coworkers. Review of Systems Constitutional: Negative. HENT: Positive for congestion, rhinorrhea, sinus pressure and sinus pain. Respiratory: Positive for cough. Negative for shortness of breath. Cardiovascular: Negative. Neurological: Negative. Physical Exam Vitals reviewed. Constitutional: Appearance: Normal appearance. HENT: Right Ear: Tympanic membrane normal. Left Ear: Tympanic membrane normal. Nose: Rhinorrhea present. Rhinorrhea is purulent. Right Turbinates: Enlarged and swollen. Left Turbinates: Enlarged and swollen. Right Sinus: Maxillary sinus tenderness present. Left Sinus: Maxillary sinus tenderness present. Cardiovascular: Rate and Rhythm: Normal rate and regular rhythm. Pulmonary: Effort: Pulmonary effort is normal. Breath sounds: Normal breath sounds. Neurological: Mental Status: She is alert and oriented to person, place, and time. Vitals: 04/08/22 0826 BP: 110/74 Pulse: 82 Resp: 18 Temp: 37.1 ??C (98.7 ??F) SpO2: 98% Weight: 87.1 kg (192 lb) Height: 152.4 cm (5') No results found. History reviewed. No pertinent past medical history. Current Outpatient Medications: spironolactone (ALDACTONE) 50 mg tablet, , Disp: , Rfl: amoxicillin-clavulanate (AUGMENTIN) 875-125 mg per tablet, Take 1 tablet by mouth 2 (two) times a day for 10 days, Disp: 20 tablet, Rfl: 0 benzonatate (TESSALON) 200 mg capsule, Take 1 capsule (200 mg total) by mouth 3 (three) times a dayas needed for cough, Disp: 42 capsule, Rfl: 0 doxycycline (PERIOSTAT) 20 mg tablet, Take 20 mg by mouth 2 (two) times a day, Disp: , Rfl: fluconazole (DIFLUCAN) 150 mg tablet, Take 1 tablet (150 mg total) by mouth once for 1 dose, Disp: 1 tablet, Rfl: 0 predniSONE (DELTASONE) 20 mg tablet, Take 1 tablet (20 mg) by mouth daily (Patient not taking: Reported on 04/08/2022), Disp: 5 tablet, Rfl: 0 Allergies Allergen Reactions Sulfa (Sulfonamide Antibiotics) Rash Social History Tobacco Use Smoking status: Never Smokeless tobacco: Never Substance and Sexual Activity Drug use: None Sexual activity: None Alcohol Use: Not on file Assessment/Plan Diagnoses and all orders for this visit: Acute non-recurrent maxillary sinusitis (Primary) Antibiotic-induced yeast infection Other orders - amoxicillin-clavulanate (AUGMENTIN) 875-125 mg per tablet; Take 1 tablet by mouth 2 (two) times aday for 10 days - fluconazole (DIFLUCAN) 150 mg tablet; Take 1 tablet (150 mg total) by mouth once for 1 dose - benzonatate (TESSALON) 200 mg capsule; Take 1 capsule (200 mg total) by mouth 3 (three) times a day as needed for cough No results found for this or any previous visit (from the past 4 hour(s)). Patient Education: Research has proven that unless you are running a fever, sinus infections are typically viral untildays 9-10. Finish the entire antibiotic prescription. Take this with food. Eat yogurt or take probiotic daily while on antibiotics. Symptomatic treatments include: -Over the counter antihistamine such as loratadine (Claritin) or cetirizine (Zyrtec) to reduce secretions. The D formula includes pseudoephedrine and can be helpful as a decongestant but SHOULD NOTBE USED IF YOU HAVE A HISTORY OF HIGH BLOOD PRESSURE. -Coricidin HBP may be taken for congestion if you have a history of high blood pressure. -Tessalon, Dextromethorphan (Robitussin) or Delsym for cough -Guafenesin (Mucinex) to thin secretions -Acetaminophen (Tylenol), ibuprofen (Motrin, Advil), or Aleve (naproxen) for pain or fever. -The use of hypertonic saline to irrigate nasal passageways can be helpful. Over the counter systems include Neti Pot and Nasopure. Use with distilled water. -Salt water gargles and throat lozenges can be helpful for sore throat. -To prevent spreading the illness to others cover your sneeze and cough into your arm and not your hand, don't allow others to eat or drink with the same utensils or glass, and use hand supervisor fleshing before touching people or common surfaces. -Apply warm packs to face to facilitate sinus drainage. - Use cool mist humidifier in bedroom at night. -Increase fluid consumption and Rest. -Follow up with your PCP in 1 week or sooner if symptoms worsen or are not improving as planned. -If you experience any shortness of breath, chest pain, or high fever >101, go to the Emergency Room. Use alternate method of control for the entire course of antibiotics and one week after the last dose of antibiotics, if applicable. GO TO EMERGENCY ROOM OR CALL 911 WITH ANY OF THE FOLLOWING SYMPTOMS: HIGH, PERSISTENT FEVER >101; SWELLING, INFLAMMATION, OR REDNESS AROUND EYES, ABNORMAL EYE MOVEMENTS, CHEST PAIN, SHORTNESS OF BREATH, VISION CHANGES (DOUBLE VISION OR IMPAIRED VISION); SEVERE HEADACHE; ALTERED MENTAL STATUS. THESE ARE SIGNS OF A RARE, BUT SERIOUS COMPLICATION AND REQUIRES IMMEDIATE EMERGENCY ATTENTION. Patient is requesting a Diflucan as she states that Augmentin gives her yeast infection. I will send that to the pharmacy as well. I did instruct the patient that if at any point her symptoms worsen, or she starts to have shortness of breath or difficulty breathing that she needs to report to the ER or report to the clinic for re-evaluation. She verbalized understanding. Disposition Treatment plan including expectations, follow up, and return precautions discussed with patient/parent, verbalizes understanding. Medication dosage, use, and potential adverse reactions discussed with patient/parent. Advised to follow up with PCP if symptoms do not resolve as expected or sooner if condition worsens. Signs/symptoms warranting ER evaluation reviewed. Patient and/or guardian was given an opportunity to ask questions, questions answered. Dereje Lugo NP Cosigned by Ottoniel Tucker MD at 04/08/2022 9:24 AM DRUPAL PHP DEVELOPER AL PHP DEVELOPER AL PHP DEVELOPER documented in this encounter Plan of Treatment Not on file documented as of this encounter Visit Diagnoses Diagnosis Acute non-recurrent maxillary sinusitis- Primary Antibiotic-induced yeast infection documented in this encounter Discontinued Medications Medication Sig Discontinue Reason Start Date End Da te benzonatate (TESSALON) 100 mg capsuleIndications:Cough Take 1 capsule (100 mg total) by mouth 3 (three) times a day as needed for cough 03/16/2022 04/08/2022 documented as of this encounter Historical Medications * This list may reflect changes made after this encounter. doxycycline (PERIOSTAT) 20 mg tablet Take 1 tablet (20 mg total) by mouth 2 (two) times a day added in this encounter Additional Health Concerns Infection Onset Date Last Indicated Resolved Time COVID: Recovered Comment:Added based on recent COVID infection. 03/26/2022 04/08/2022 06/24/2022 3:[address] documented as of this encounter Care Teams Meat Cutter Relationship Specialty Start Date End Date No, Physician PCP - General 03/16/22 documented as of this encounter
--- OUTSIDE RECORDS SUMMARY | 2024-05-03 02:18 | XMS_ITS | Encounter Summary ---
Author Organization [facility] Healthcare Address [address] [place] [address] Care Team Providers Care Gallery Intern Name Role Phone No, Physician Primary Care Provider [phone] Encounter Details Date Type Department Care Team (Late st Contact Info) Description 04/22/2024 Patient Self-Triage [facility] [address] [place] [address] Mychart, Generic Provider [address] [place], [place] [id number] Social History Tobacco Use Types Packs/Day Years Used Date Smoking Tobacco: Never Smokeless Tobacco: Never Personal Safety Answer Date Recorded Getting School Help Needed Not on file 06/29 Comments No Sex and Gender Information Value Date Recorded Sex Assigned at Not on file Legal Sex Female 9:17 AM ENTRY LEVEL CIVIL ENGINEER Gender Identity Not on file Sexual Orientation Not on file documented as of this encounter Plan of Treatment Not on file documented as of this encounter Visit Diagnoses Not on filedocumented in this encounter Care Teams Gallery Intern Relationship Specialty Start Date End Date No, Physician PCP - General 03/16/22 documented as of this encounter
--- OUTSIDE RECORDS SUMMARY | 2024-05-03 02:18 | XMS_ITS | Encounter Summary ---
Author Organization [facility] Healthcare Address [address] [place] [address] Care Team Providers Care Municipal Clerk Name Role Phone No, Physician Primary Care Provider [phone] Encounter Details Date Type Department Care Team (Latest Contact Info) Description 09/07/2022 3:51 PM CDT - 09/07/2022 11:59 PM CDT Hospital Encounter [address] [phone] Acute non-recurrent pansinusitis Discharge Disposition: Discharge to home or self care Social History Tobacco Use Types Packs/Day Years Used Date Smoking Tobacco: Never Smokeless Tobacco: Never Comments No Sex and Gender Information Value Date Recorded Sex Assigned at Not on file Legal Sex Female 9:17 AM PROPOSAL MANAGER WRITER Gender Identity Not on file Sexual Orientation Not on file documented as of this encounter Medications at Time of Discharge doxycycline (PERIOSTAT) 20 mg tablet Take 1 tablet (20 mg total) by mouth 2 (two) times a day spironolactone (ALDACTONE) 50 mg tablet 02/18/2022 amoxicillin-clavu lanate (AUGMENTIN) 875-125 mg per tablet Take 1 tablet by mouth 2 (two) times a day for 7 days 14 tablet 09/07/2022 09/14/2022 documented as of this encounter Discharge Disposition Disposition Code Departure Means Destination Discharge to home or self care documented in this encounter Plan of Treatment Not on file documented as of this encounter Procedures Procedure Name Priority Date/Time Associated Diagnosis Comments THROAT CULTURE Routine 09/07/2022 3:51 PM CDT Acute non-recurrent pansinusitis documented in this encounter Results * Throat culture Throat (09/07/2022 3:51 PM CDT) Report Final Report: No growth of pathogens. DOROTHEA DANGELO Comment:Testing performed by : [facility], [address] [place]., [address] Throat 09/07/2022 3:51 PM CDT 09/07/2022 10:41 PM CDT Narrative DOROTHEA DANGELO - 09/08/2022 5:55 PM CDT Testing performed by [facility] Microbiology Laboratory ([phone]). us Ailyn [facility] - [facility] AL ORDERABLES Final Result DOROTHEA DANGELO [address] Department [place] [address] documented in this encounter Visit Diagnoses Diagnosis Acute non-recurrent pansinusitis documented in this encounter Care Teams Municipal Clerk Relationship Specialty Start Date End Date No, Physician PCP - General 03/16/22 documented as of this encounter
--- OUTSIDE RECORDS SUMMARY | 2024-05-03 02:18 | XMS_ITS | Encounter Summary ---
Author Organization [facility] Address [address] [address] Care Team Providers Care Culinary Internship Name Role Phone No, Physician Primary Care Provider [phone] Reason for Visit * Reason Comments URI Pt c/o ear pain, pre ssure, cough and fatigue for 12 days Encounter Details Date Type Department Care Team (Late st Contact Info) Description 09/07/2022 3:30 PM CDT Office Visit [facility] Outpatient Center [address] [phone] Ailyn Olivares PA [address] [place] [address] [address] [place], [place] [phone] Acute non-recurrent pansinusitis (Primary Dx) Social History Tobacco Use Types Packs/Day Years Used Date Smoking Tobacco: Never Smokeless Tobacco: Never Tobacco Cessation:Counseling Given: Not Answered Comments No Sex and Gender Information Value Date Recorded Sex Assigned at Not on file Legal Sex Female 9:17 AM SCIENCES DEAN Gender Identity Not on file Sexual Orientation Not on file documented as of this encounter Last Filed Vital Signs Vital Sign Reading Time Taken Comments Blood Pressure 118/70 09/07/2022 3:46 PM CDT Pulse 86 09/07/2022 3:46 PM CDT Temperature 36.9 ??C (98.5 ??F) 09/07/2022 3:46 PM CD T Respiratory Rate 20 09/07/2022 3:46 PM CDT Oxygen Saturation 98% 09/07/2022 3:46 PM CDT Inhaled Oxygen Concentration - - Weight 83.9 kg (185 lb) 09/07/2022 3:46 PM CDT Height 152.4 cm (5') 09/07/2022 3:46 PM CDT Body Mass Index 36.13 09/07/2022 3:46 PM CDT documented in this encounter Patient Instructions * Patient Instructions* Ailyn Olivares PA - 09/07/2022 3:30 PM CDT Sinus Infection -Take and finish your antibiotic prescription as directed. -You may try: Nasal saline wash, either Neti Pot or Sinus Rinse DAILY or a saline nasal spray 3-4 times a day. Guaifenesin expectorants (Maximum Strength Mucinex, Robitussin, store brand) to loosen secretions. For cough you can use dextromethorphan (Delsym syrup, Robitussin cough capsules or store brand). Dextromethorphan is considered safe for and breast feeding women. You may try decongestants such as Sudafed (purchase at pharmacy) or Sudafed PE for congestion relief. Decongestants can keep you awake at night. Do not use decongestants if you have high blood pressure or if you are . If you have high blood pressure you can take otc Coricidin per package directions -Increase fluid intake: drink 2 liters (2 quarts) of non-caffeinated, non- alcoholic beverages daily, drinking alcohol causes nasal and sinus membranes to swell -Steam inhalation and warm compress to face often help relieve pressure -Avoid allergens and excessively dry heat -Sleep with head of bed elevated to encourage drainage. -Use of a humidifier if environment is heated by dry forced - air system -Avoid smoking, second-hand smoke and air pollutants. -If you are not improving or worsening, or develop facial swelling, in the next 3-5 days you must RETURN to the clinic, go to your PCP, or Urgent Care/ER to be SEEN and reevaluated. No further prescriptions or refills will be given by phone without another evaluation. * Attachments The following attachments cannot be sent through Care Everywhere. * Sinusitis (General Information) (Citizen Of [place]) documented in this encounter Ordered Prescriptions Prescription Sig Dispense Quantity Refills Last Filled Start Date End Date amoxicillin-clavul anate (AUGMENTIN) 875-125 mg per tablet Take 1 tablet by mouth 2 (two) times a day for 7 days 14 tablet 09/07/2022 09/14/2022 documented in this encounter Progress Notes * Ailyn Olivares PA - 09/07/2022 3:30 PM CDT Images from the original note were not included. Subjective/Objective Patient ID: Ewelina Vargas is a 52 y.o. female. Chief Complaint URI (Pt c/o ear pain, pressure, cough and fatigue for 12 days) Pt presents w/ URI x 12 days. She c/o bilateral ear pain, cough, fatigue, nasal congestion, rhinorrhea, sore throat, chills. No fever, BA. States her symptoms started on her way home from [place]. Taking advil cold/sinus w/ moderate relief. Review of Systems All systems reviewed and are negative or non contributory for this patient's presentation today other than as stated in the HPI . Physical Exam Constitutional: General: She is not in acute distress. Appearance: She is not ill-appearing or toxic-appearing. HENT: Head: Normocephalic and atraumatic. Right Ear: Tympanic membrane, ear canal and external ear normal. Left Ear: Tympanic membrane, ear canal and external ear normal. Nose: Congestion and rhinorrhea present. Mouth/Throat: Mouth: Mucous membranes are moist. Pharynx: Oropharynx is clear. Posterior oropharyngeal erythema present. No oropharyngeal exudate. Eyes: Conjunctiva/sclera: Conjunctivae normal. Pupils: Pupils are equal, round, and reactive to light. Cardiovascular: Rate and Rhythm: Normal rate and regular rhythm. Heart sounds: Normal heart sounds. Pulmonary: Effort: Pulmonary effort is normal. Breath sounds: Normal breath sounds. No wheezing or rhonchi. Musculoskeletal: General: Normal range of motion. Cervical back: Normal range of motion. Skin: General: Skin is warm and dry. Neurological: General: No focal deficit present. Mental Status: She is alert and oriented to person, place, and time. Psychiatric: Mood and Affect: Mood normal. Behavior: Behavior normal. Vitals: 09/07/22 1546 BP: 118/70 Pulse: 86 Resp: 20 Temp: 36.9 ??C (98.5 ??F) SpO2: 98% Weight: 83.9 kg (185 lb) Height: 152.4 cm (5') Assessment/Plan -URI symptoms x 12 days, worsening. Started Augmentin. Switch from phenylephrine to pseudoephedrine. Diagnoses and all orders for this visit: Acute non-recurrent pansinusitis (Primary) - POCT rapid strep A - Throat culture Throat; Future Other orders - amoxicillin-clavulanate (AUGMENTIN) 875-125 mg per tablet; Take 1 tablet by mouth 2 (two) times aday for 7 days Recent Results (from the past 4 hour(s)) POCT rapid strep A Collection Time: 09/07/22 3:51 PM Result Value Ref Range Rapid Strep A, POC Negative Negative Disposition Treatment plan including expectations, follow up, and return precautions discussed with patient/parent, verbalizes understanding. Medication dosage, use, and potential adverse reactions discussed with patient/parent. Advised to follow up with PCP if symptoms do not resolve as expected or sooner if condition worsens. Signs/symptoms warranting ER evaluation reviewed. Patient and/or guardian was given an opportunity to ask questions, questions answered. RABIA Ware 09/07/22 3:58 PM documented in this encounter Plan of Treatment Not on file documented as of this encounter Procedures Procedure Name Priority Date/Time Associated Diagnosis Comments POCT RAPID STREP Routine 09/07/2022 3:51 PM CDT Acute non-recurrent pansinusitis documented in this encounter Results * Throat culture Throat (09/07/2022 3:51 PM CDT) Report Final Report: No growth of pathogens. DOROTHEA DANGELO Comment:Testing performed by : [facility], [address] [facility], [place]., [address] Throat 09/07/2022 3:51 PM CDT 09/07/2022 10:41 PM CDT Narrative DOROTHEA DANGELO - 09/08/2022 5:55 PM CDT Testing performed by [facility] Microbiology [facility] ([phone]). Ailyn [facility] - GENER AL ORDERABLES Final Result DOROTHEA DANGELO [address] Department [place] [address] * POCT rapid strep A (09/07/2022 3:51 PM CDT) Rapid Strep A, POC Negative Negative Swab 09/07/2022 3:51 PM CDT Ailyn [facility] POINT OF CARE TEST ORDER MOHINDER Final Result documented in this encounter Visit Diagnoses Diagnosis Acute non-recurrent pansinusitis- Primary Acute non-recurrent pansinusitis documented in this encounter Discontinued Medications Medication Sig Discontinue Reason Start Date End Da te predniSONE (DELTASONE) 20 mg tablet Take 1 tablet (20 mg) by mouth daily 03/16/2022 09/07/2022 documented as of this encounter Care Teams Culinary Internship Relationship Specialty Start Date End Date No, Physician PCP - General 03/16/22 documented as of this encounter
--- OUTSIDE RECORDS SUMMARY | 2024-05-03 02:18 | XMS_ITS | Encounter Summary ---
Author Organization [facility] Address [address] [place] [address] Care Team Providers Care Unarmed Security Officer Name Role Phone No, Physician Primary Care Provider [phone] Reason for Visit * Reason Onset Date Comments Covid-19 Home Monitoring 03/18/2022 Enrollm ent call day 2 Encounter Details Date Type Department Care Team (Late st Contact Info) Description 03/18/2022 Telephone [facility] Accountable Care Organization [address] [place] [id number] Kacie Bsutillo MA [address] [place] [address] [address] [facility] [address] [place] [address] Covid-19 Home Monitoring (Enrollment call day 2 ) Social History Tobacco Use Types Packs/Day Years Used Date Smoking Tobacco: Never Smokeless Tobacco: Never Comments Unknown Sex and Gender Information Value Date Recorded Sex Assigned at Not on file Legal Sex Female 9:17 AM DIRECTOR OF PATIENT SAFETY Gender Identity Not on file Sexual Orientation Not on file documented as of this encounter Miscellaneous Notes * Telephone Encounter - Kacie Bustillo MA - 03/18/2022 9:27 AM CST This patient was identified as a candidate for the [facility]/ COVID home monitoring program. The patient was contacted via phone for enrollment in the program. The patient has declined to participate in the automated MyChart Mangle Tender Program, but has verbally agreed to the Phone Only Home Monitoring Program, which includes being contacted for a daily phone assessment by a [facility]/ staff member. The patient was informed that members of the healthcare team will contact them depending on the symptoms that they report. This call could come from a variety of phone numbers depending on which member of the healthcare team is contacting the patient, and the patient should be prepared to answer calls from a variety of phone numbers. If the patient is unable to be reached for 3 days, they will be disenrolled from the program. Patient is aware that we will try and reach them at every available phone number, including HIPAA contacts. After review, the patient declined to participate. The ???COVID19 Home Monitoring?? order was not placed to enroll the patient in the phone only version of the program. Patient is doing well, hotline number provided if needed CTOR OF PATIENT SAFETY documented in this encounter Plan of Treatment Not on file documented as of this encounter Visit Diagnoses Not on filedocumented in this encounter Additional Health Concerns Infection Onset Date Last Indicated Resolved Time COVID19 03/16/2022 03/16/2022 03/26/2022 3:07 AM DIRECTOR OF PATIENT SAFETY documented as of this encounter Care Teams Unarmed Security Officer Relationship Specialty Start Date End Date No, Physician PCP - General 03/16/22 documented as of this encounter
--- OUTSIDE RECORDS SUMMARY | 2024-05-03 02:18 | XMS_ITS | Encounter Summary ---
Author Organization [facility] Healthcare Address [address] [place] [address] Care Team Providers Care American Indian Studies Professor Name Role Phone No, Physician Primary Care Provider [phone] Reason for Visit * Reason Comments Back Pain Encounter Details Date Type Department Care Team (Late st Contact Info) Description 06/27/2022 9:58 AM HR SHARED SERVICES CONSULTANT - 06/27/2022 2:29 PM HR SHARED SERVICES CONSULTANT Emergency [facility] Emergency Department [address] [place] [address] Shruthi Obregon MD [address] [facility] [address] [place] [address] Cervical radiculopathy (Primary Dx); Weakness of right upper extremity; Right upper extremity numbness Discharge Disposition: Discharge to home or self care Social History Tobacco Use Types Packs/Day Years Used Date Smoking Tobacco: Never Smokeless Tobacco: Never Comments No Sex and Gender Information Value Date Recorded Sex Assigned at Not on file Legal Sex Female 9:17 AM HR SHARED SERVICES CONSULTANT Gender Identity Not on file Sexual Orientation Not on file documented as of this encounter Last Filed Vital Signs Vital Sign Reading Time Taken Comments Blood Pressure 124/77 06/27/2022 12:00 PM HR SHARED SERVICES CONSULTANT Pulse 77 06/27/2022 1:10 PM HR SHARED SERVICES CONSULTANT Temperature 36.3 ??C (97.4 ??F) 06/27/2022 8:35 AM CS T Respiratory Rate 18 06/27/2022 8:35 AM HR SHARED SERVICES CONSULTANT Oxygen Saturation 94% 06/27/2022 1:10 PM HR SHARED SERVICES CONSULTANT Inhaled Oxygen Concentration - - Weight 87.1 kg (192 lb) 06/27/2022 8:32 AM HR SHARED SERVICES CONSULTANT Height 152.4 cm (5') 06/27/2022 8:32 AM HR SHARED SERVICES CONSULTANT Body Mass Index 37.5 06/27/2022 8:32 AM HR SHARED SERVICES CONSULTANT documented in this encounter Discharge Instructions * Discharge Instructions* Frandy Guzman MD - 06/27/2022 1:38 PM HR SHARED SERVICES CONSULTANT You were evaluated in the Emergency Department today for your back pain. Your evaluation did not show signs of medical conditions requiring emergent intervention at this time. Please take ibuprofen and tylenol as discussed to help control your symptoms. You are also being prescribed a Medrol Dosepack for your symptoms. You are being referred to the Orthopedic Spine clinic to follow up for your symptoms. Please, give them a call at to schedule an appointment. Return to the Emergency Department if you experience worsening back pain, difficulty walking, fevers, numbness, tingling, incontinence, or any other concerning symptoms. SHARED SERVICES CONSULTANT SHARED SERVICES CONSULTANT SHARED SERVICES CONSULTANT * Attachments The following attachments cannot be sent through Care Everywhere. * Radiculopathy, Cervical ([place] Islander) documented in this encounter Medications at Time of Discharge doxycycline (PERIOSTAT) 20 mg tablet Take 1 tablet (20 mg total) by mouth 2 (two) times a day spironolactone (ALDACTONE) 50 mg tablet 02/18/2022 methylPREDNISolo ne (MEDROL DOSEPACK) 4 mg Dosepack Take as directed on package 1 packet 06/27/2022 07/03/2022 predniSONE (DELTASONE) 20 mg tablet Take 1 tablet (20 mg) by mouth daily 5 tablet 03/16/2022 09/07/2022 documented as of this encounter Ordered Prescriptions Prescription Sig Dispense Quantity Refills Last Filled Start Date End Date methylPREDNISolone (MEDROL DOSEPACK) 4 mg Dosepack Take as directed on package 1 packet 06/27/2022 3 documented in this encounter Discharge Disposition Disposition Code Departure Means Destination Comment s Discharge to home or self care documented in this encounter ED Notes * Frandy Guzman MD - 06/27/2022 11:25 AM CST HPI Chief Complaint Patient presents with Back Pain Patient presents with: Back Pain recorder of deeds note: Patient presents with worsening non traumatic cervical spine pain x2 days. Patientreports she woke up Monday morning feeling stiff and the pain has been worsening since an now effecting her right arm. Patient ambulatory in triage. Denies loss of bowel/bladder. Ewelina Vargas is a 52 y.o. female with no significant past medical history, who presents with upper back pain and neck pain that has been going on since 2 days ago. She states it started when shewoke up and says that the pain is shooting down her right upper extremity. She states that her right upper extremity feels numb and weak. She denies any fever, change in her vision, worsening headache, chills, chest pain, shortness of breath, nausea, vomiting, diarrhea, recent trauma. She says that2 months ago she lifted some furniture but she denies feeling any pain afterwards. ROS performed and negative except as documented above in HPI. No past medical history on file. The patient has a current medication list which includes the following long-term medication(s): spironolactone. No past surgical history on file. No family history on file. Social History Social History Narrative Not on file BP 134/82 Pulse 85 Temp 36.3 ??C (97.4 ??F) Resp 18 Ht 152.4 cm (5') Wt 87.1 kg (192 lb) SpO2 97% BMI 37.50 kg/m?? Patient History: There are no problems to display for this patient. No past medical history on file. No past surgical history on file. No family history on file. Social History Tobacco Use Smoking status: Never Smokeless tobacco: Never Substance and Sexual Activity Alcohol use: Not on file Drug use: Not on file Sexual activity: Not on file Social History Social History Narrative Not on file Review of Systems Review of Systems Musculoskeletal: Positive for back pain and neck pain. Neurological: Positive for weakness and numbness. Physical Exam ED Triage Vitals Temp Pulse Resp BP SpO2 06/27/22 0835 06/27/22 0835 06/27/22 0835 06/27/22 0836 06/27/22 0835 36.3 ??C (97.4 ??F) 82 18 127/87 98 % Temp src Heart Rate Source Patient Position BP Location FiO2 (%) -- -- -- -- -- Height Height Method Weight Weight Method 06/27/2232 -- 06/27/2232 -- 1.524 m (5') 87.1 kg (192 lb) Physical Exam Vitals and nursing note reviewed. Constitutional: General: She is not in acute distress. Appearance: She is well-developed. HENT: Head: Normocephalic and atraumatic. Right Ear: External ear normal. Left Ear: External ear normal. Nose: Nose normal. Eyes: General: No visual field deficit. Extraocular Movements: Extraocular movements intact. Conjunctiva/sclera: Conjunctivae normal. Pupils: Pupils are equal, round, and reactive to light. Cardiovascular: Rate and Rhythm: Normal rate and regular rhythm. Heart sounds: No murmur heard. Pulmonary: Effort: Pulmonary effort is normal. No respiratory distress. Breath sounds: Normal breath sounds. No stridor. No wheezing, rhonchi or rales. Chest: Chest wall: No tenderness. Abdominal: General: There is no distension. Palpations: Abdomen is soft. There is no mass. Tenderness: There is no abdominal tenderness. There is no guarding or rebound. Hernia: No hernia is present. Musculoskeletal: General: No swelling. Cervical back: Neck supple. Tenderness present. No swelling, edema, erythema, signs of trauma or lacerations. Pain with movement present. Normal range of motion. Right lower leg: No edema. Left lower leg: No edema. Skin: General: Skin is warm and dry. Capillary Refill: Capillary refill takes less than 2 seconds. Neurological: Mental Status: She is alert and oriented to person, place, and time. Mental status is at baseline. Cranial Nerves: No cranial nerve deficit, dysarthria or facial asymmetry. Sensory: No sensory deficit. Motor: Weakness present. No tremor, seizure activity or pronator drift. Gait: Gait normal. Psychiatric: Mood and Affect: Mood normal. MDM Medical Decision Making MDM @[id number]@ Additional history provided by: none Prior external notes reviewed: none Socioeconomic considerations: lack of PCP Patient was nontoxic, stable, in no acute distress. Exam as above. Differential diagnoses: - high prob - cervical radiculopathy - moderate prob - herniated disc - low prob - fracture, spinal epidural abscess, cellulitis In consideration of the above differential diagnosis, the following orders were placed while the patient was in the Emergency Department. See ED course for pertinent results and imaging interpretation. Orders Placed This Encounter Ambulatory referral to Orthopedic Spine The patient received the following medications: Medications lidocaine (LIDODERM) 5 % patch 1 patch (1 patch transdermal Medication Applied 06/27/22 1208) acetaminophen (TYLENOL) tablet 1,000 mg (1,000 mg oral Given 06/27/22 1206) ketorolac (TORADOL) 30 mg/mL (1 mL) injection 30 mg (30 mg intramuscular Given 06/27/22 1207) Admission will be considered if abnormal neuro findings, requiring CT/MRI. However, no indication for admission today. Will plan for discharge with prescriptions for Medrol Dosepack and referral to Ortho Spine clinic. Strict return precautions were discussed with patient/family. Questions were answered. Patient/family expressed verbal understanding and agreement with plan. ED Diagnoses: Cervical radiculopathy (primary encounter diagnosis) Attending Summary of Care Cervical radiculopathy (primary encounter diagnosis) Risk OTC drugs. Prescription drug management. Decision regarding hospitalization. Diagnosis or treatment significantly limited by social determinants of health. Attending Summary of Care Cervical radiculopathy Weakness of right upper extremity Right upper extremity numbness Frandy Guzman MD Resident 06/27/22 1466 Cosigned by Shruthi Mtz MD at 06/27/2022 2:24 PM HR SHARED SERVICES CONSULTANT SHARED SERVICES CONSULTANT SHARED SERVICES CONSULTANT Associated attestation - Shruthi Obregon MD - 06/27/2022 2:24 PM HR SHARED SERVICES CONSULTANT I have seen and examined the patient on 06/27/2022. I agree with the findings and plan of care as documented in the resident's note. * Melva Villela RN - 06/27/2022 9:58 AM CST Bed: ED3-01 Expected date: Expected time: Means of arrival: Car Comments: Melva Villela RN 06/27/22 0958 SHARED SERVICES CONSULTANT * Adrienne Begum RN - 06/27/2022 8:33 AM CST Patient presents with worsening non traumatic cervical spine pain x2 days. Patient reports she wokeup Monday morning feeling stiff and the pain has been worsening since an now effecting her right arm. Patient ambulatory in triage. Denies loss of bowel/bladder. SHARED SERVICES CONSULTANT SHARED SERVICES CONSULTANT documented in this encounter Plan of Treatment Not on file documented as of this encounter Visit Diagnoses Diagnosis Cervical radiculopathy- Primary Brachial neuritis or radiculitis nos Weakness of right upper extremity Other musculoskeletal symptoms referable to limbs Right upper extremity numbness Disturbance of skin sensation documented in this encounter Administered Medications Inactive Administered Medications - up to 3 most recent administrations Medication Order MAR Action Action Date Dose Rate Site acetaminophen (TYLENOL) tablet 1,000 mg 1,000 mg, oral, Once, On Mon06/27/22 at 1142, For 1 dose Given 06/27/2022 12:06 PM HR SHARED SERVICES CONSULTANT 1,000 mg ketorolac (TORADOL) 30 mg/mL (1 mL) injection 30 mg 30 mg, intramuscular, Once, On Mon06/27/22 at 1142, For 1 dose Given 06/27/2022 12:07 PM HR SHARED SERVICES CONSULTANT 30 mg Left Deltoid lidocaine (LIDODERM) 5 % patch 1 patch 1 patch, transdermal, Administer over 12 Hours, Daily, First dose on Mon06/27/22 at 1142, Do not cover the holes on the top side of the patch., Apply to affected area: back Medication Applied 06/27/2022 12:08 PM HR SHARED SERVICES CONSULTANT 1 patch Back documented in this encounter Active and Recently Administered Medications Times are shown in HR SHARED SERVICES CONSULTANT. Scheduled Medication Order 06/25/2022 06/26/2022 06/27/2022 acetaminophen (TYLENOL) tablet 1,000 mg (COMPLETED) 1,000 mg, oral, Once, On Mon06/27/22 at 1142, For 1 dose 1206 (Given - Provid er: Zoë Castanon RN) ketorolac (TORADOL) 30 mg/mL (1 mL) injection 30 mg (COMPLETED) 30 mg, intramuscular, Once, On Mon06/27/22 at 1142, For 1 dose 1207 (Given - Provid er: Zoë Castanon RN) lidocaine (LIDODERM) 5 % patch 1 patch 1 patch, transdermal, Administer over 12 Hours, Daily, First dose on Mon06/27/22 at 1142, Do not cover the holes on the top side of the patch., Apply to affected area: back 1208 (Medication Donal lied - Provider: Zoë Castanon RN)1429 (Due: Medication Removed - Provider: Automatic Discharge Provider - Comment: Time automatically adjusted from order being discontinued) documented in this encounter Care Teams American Indian Studies Professor Relationship Specialty Start Date End Date No, Physician PCP - General 03/16/22 documented as of this encounter
--- OUTSIDE RECORDS SUMMARY | 2024-05-03 02:18 | XMS_ITS | Referral Summary ---
Author Organization [facility] [address] [address] Care Team Providers Care Production Supervisor Off Shift Name Role Phone No, Physician Primary Care Provider [phone] Encounters Date Type Department Care Team Description 04/22/2024 Patient Self-Triage [facility] Physicians [address] [place] [id number] Mychart, Generic Provider from Last 3 Months Allergies Active Allergy Reactions Criticality Noted Date Comments Sulfa (Sulfonamide Antibiotics) Rash Medium 03/01 Medications spironolactone (ALDACTONE) 50 mg tablet 02/18/2022 Active doxycycline (PERIOSTAT) 20 mg tablet Take 1 tablet (20 mg total) by mouth 2 (two) times a day Active Active Problems No known active problems Social History Tobacco Use Types Packs/Day Years Used Date Smoking Tobacco: Never Smokeless Tobacco: Never Tobacco Cessation:Counseling Given: Not Answered Personal Safety Answer Date Recorded Getting School Help Needed Not on file 06/29 Comments No Sex and Gender Information Value Date Recorded Sex Assigned at Not on file Legal Sex Female 9:17 AM BELT BRANDER Gender Identity Not on file Sexual Orientation Not on file Last Filed Vital Signs Vital Sign Reading [...] Mass Index 36.13 09/07/2022 3:46 PM CDT Plan of Treatment Not on file Insurance [employer] OOS [employer] OOS BLUE [facility] CHOICE OOS Care Teams Production Supervisor Off Shift Relationship Specialty Start Date End Date No, Physician PCP - General 03/16/22
--- OUTSIDE RECORDS SUMMARY | 2024-05-03 02:18 | XMS_ITS | Encounter Summary ---
Author Organization [facility] Address [address] [place] [address] Care Team Providers Care Claims Service Representative Name Role Phone No, Physician Primary Care Provider [phone] Reason for Visit * Reason Onset Date Comments Covid-19 Home Monitoring 03/17/2022 Enrollm ent call day 1 Encounter Details Date Type Department Care Team (Late st Contact Info) Description 03/17/2022 Telephone [facility] Accountable Care Organization [address] [place] [id number] Kacie Bustillo MA [address] [place] [address] [address] [facility] [address] [place] [address] Covid-19 Home Monitoring (Enrollment call day 1 ) Social History Tobacco Use Types Packs/Day Years Used Date Smoking Tobacco: Never Smokeless Tobacco: Never Comments Unknown Sex and Gender Information Value Date Recorded Sex Assigned at Not on file Legal Sex Female 9:17 AM PRINTED CIRCUIT BOARDS CONTACT PRINTER Gender Identity Not on file Sexual Orientation Not on file documented as of this encounter Miscellaneous Notes * Telephone Encounter - Kacie Bustillo MA - 03/17/2022 11:03 AM CST COVID Home Monitoring Unable to Reach Called patient for potential enrollment in the [facility]/ COVID-19 home monitoring program. The patientwas contacted via phone for enrollment in the program, but could not be reached to accept or decline Unable to reach patient. Patient will receive follow up call tomorrow TED CIRCUIT BOARDS CONTACT PRINTER documented in this encounter Plan of Treatment Not on file documented as of this encounter Visit Diagnoses Not on filedocumented in this encounter Additional Health Concerns Infection Onset Date Last Indicated Resolved Time COVID19 03/16/2022 03/16/2022 03/26/2022 3:07 AM PRINTED CIRCUIT BOARDS CONTACT PRINTER documented as of this encounter Care Teams Claims Service Representative Relationship Specialty Start Date End Date No, Physician PCP - General 03/16/22 documented as of this encounter
--- OUTSIDE RECORDS SUMMARY | 2024-05-03 02:18 | XMS_ITS | Clinical Summary ---
Author Organization [facility] [address] [address] Care Team Providers Care Doctor Of Radiology Name Role Phone No, Physician Primary Care Provider [phone] Allergies Active Allergy Reactions Criticality Noted Date Comments Sulfa (Sulfonamide Antibiotics) Rash Medium 03/01 Medications spironolactone (ALDACTONE) 50 mg tablet 02/18/2022 Active doxycycline (PERIOSTAT) 20 mg tablet Take 1 tablet (20 mg total) by mouth 2 (two) times a day Active Active Problems No known active problems Encounters Date Type Department Care Team Description 04/22/2024 Patient Self-Triage [facility] HealthCare/ Physicians [address] [place] [address] Rufinat, Generic Provider from Last 3 Months Medical History Medical History Date Comments Migraines Family History Medical History Relation Name Comments Hypertension Mother Mary Relation Name Status Comments Mother Mary Social History Tobacco Use Types Packs/Day Years Used Date Smoking Tobacco: Never Smokeless Tobacco: Never Tobacco Cessation:Counseling Given: Not Answered Personal Safety Answer Date Recorded Getting School Help Needed Not on file 06/29 Comments No Sex and Gender Information Value Date Recorded Sex Assigned at Not on file Legal Sex Female 9:17 AM TAP PULLER Gender Identity Not on file Sexual Orientation Not on file Obstetrics History Last Filed Vital Signs Vital Sign Reading [...] 09/07/2022 3:46 PM CDT Plan of Treatment Health Maintenance Due Date Last Done Comments Breast Cancer Screening-Mammogram 1972 Cervical Cancer Screening 1972 Colon Cancer Screening-Colonoscopy 1972 Depression Screening 1972 Hepatitis C Screening 1972 DTaP/Tdap/Td Vaccine (1 - Tdap) 1983 Hepatitis B Screening 1990 Regular Well Visit/Exam 18-64 1990 Zoster Vaccine (1 of 2) 2022 Covid-19 Vaccine (4 - 2023-2 5 season) 2023 03/19/2021, 07/07/2020, 06/09/2020 Influenza Vaccine (#1) 2023 Pneumococcal vaccine <65 Aged Out No longer eligible based on patient's age to complete this topic Insurance [employer] OOS [employer] OOS BLUE ACC CHOICE OOS BLUE ACC CHOICE OOS Care Teams Doctor Of Radiology Relationship Specialty Start Date End Date No, Physician PCP - General 03/16/22
--- OUTSIDE RECORDS SUMMARY | 2024-05-03 02:18 | XMS_ITS | Encounter Summary ---
Author Organization [facility] Address [address] [place] [address] Care Team Providers Care Hand Bander Name Role Phone Unavailable Primary Care Provider Unavailabl e Encounter Details Date Type Department Care Team (Late st Contact Info) Description 04/15/2023 External Device Data [facility] ABSTRACTION Provider, Abstract [...]
== END 2024-04-26 14:41 | disposition home or self-care (01) ==
PROVIDERS: Visit Provider Urology
PROC: (CPT 50590; principal; 2024-04-26 12:30)
DX: N20.0 Calculus of kidney (principal); Z79.85 Long-term (current) use of injectable non-insulin antidiabetic drugs; Z79.891 Long term (current) use of opiate analgesic; Z80.0 Family history of malignant neoplasm of digestive organs; Z80.3 Family history of malignant neoplasm of breast; Z82.49 Family history of ischemic heart disease and other diseases of the circulatory system
CPT/HCPCS: 50590; 74018; A9270; J0690; J1100; J2003; J2250; J2405; J2704; J3010; J7120

== ENCOUNTER 2024-05-03 15:08 | Outpatient (CLI) | payer BC, SELFPAY ==
--- NOTE | ~2024-05-03 | XR_ITS ---
XR abdomen/kub 1V Ordering provider: Roberth Schwab MD History: . N20.0 - Calculus of kidney . Comparison: None. FINDINGS: BOWEL: Nonobstructive bowel gas pattern. ORGANOMEGALY: None. SIGNIFICANT PATHOLOGIC CALCIFICATIONS: None. OTHER: No free air is seen under the diaphragm. IMPRESSION: NO ACUTE ABDOMINAL FINDINGS. Reviewed, dictated and finalized at location A. [facility]
== END 2024-05-03 15:09 | disposition home or self-care (01) ==
PROVIDERS: PCP Urology; Visit Provider Urology
DX: N20.0 Calculus of kidney (principal)
CPT/HCPCS: 74018

== ENCOUNTER 2024-08-28 10:33 | Outpatient (CLI) | payer BC, SELFPAY ==
--- NOTE | ~2024-08-28 | MM_ITS ---
EXAMINATION: MM screening ritchie BI w vanessa HISTORY: Screening TECHNIQUE: Craniocaudal and mediolateral oblique 3-D tomosynthesis images were obtained and synthetic 2-D images were generated. CAD analysis was submitted and interpreted. COMPARISON: Comparison to multiple prior studies sequentially, with oldest reviewed study dated 12/2020. BREAST PARENCHYMAL COMPOSITION: Not dense: There are scattered areas of fibroglandular density. FINDINGS: There is no evidence of suspicious mass, calcification, or architectural distortion to sugg est malignancy in either breast. There has been no suspicious interval change. IMPRESSION: 1. No mammographic evidence of malignancy. 2. Recommend routine screening mammography in one year. BI-RADS Category 1: Negative Reviewed, dictated and finalized at location A.
== END 2024-08-28 10:34 | disposition home or self-care (01) ==
PROVIDERS: PCP Urology; Visit Provider Urology
DX: Z12.31 Encounter for screening mammogram for malignant neoplasm of breast (principal)
CPT/HCPCS: 77063; 77067

== ENCOUNTER 2024-11-12 14:49 | Outpatient (CLI) | payer BC, SELFPAY ==
--- NOTE | ~2024-11-12 | XR_ITS ---
XR abdomen/kub 1V 11/12/2024 15:14 INDICATION: Renal stone TECHNIQUE: KUB COMPARISON: None FINDINGS: Bowel gas pattern is normal. Moderate colonic fecal loading. There is no evidence of free a ir, mass, organomegaly, ascites or obstruction. No abnormal calculi are seen. The bones appear inta ct. IMPRESSION: 1: No acute abdominal abnormality identified. Reviewed, dictated and finalized at location B.
== END 2024-11-12 14:50 | disposition home or self-care (01) ==
LOC: MICIMG 14:51
PROVIDERS: Visit Provider Urology
DX: N20.0 Calculus of kidney (principal)
CPT/HCPCS: 74018